=== PATIENT | female | born 1975 | race Two or more races ===

== ENCOUNTER 2024-03-28 07:00 | Day surgery (SDC) | payer MEDICAID, SELFPAY ==
[2024-03-26 13:25] LABS: HCG Qualitative,Urine Negative
[2024-03-27 13:40] VITALS: BMI 38.5
[2024-03-28] VITALS (9 sets, daily range): BP systolic 104–132; BP diastolic 66–90; PULSE 72–78; RESP 12–20; TEMP 36.2–36.7; O2SAT 93–98; BMI 38.0
[2024-03-28] MEDS: fentaNYL CIT INJ 50 mCg/ML AMP 2ML (ASD USE ONLY) IV (08:00)
[2024-03-28] MEDS: DiphenhydrAMINE INJ 50 MG/ML VIAL 25 MG IV (08:00)
[2024-03-28] MEDS: MIDAZOLAM INJ 1 MG/ML VIAL 2 ML (ASD USE ONLY) 2 MG IV (08:00)
== END 2024-03-28 09:10 | disposition home or self-care (01) ==
PROVIDERS: PCP Physician Assistant; Referring Provider Surgery; Visit Provider Surgery
PROC: 0DBE8ZX Excision of Large Intestine, Via Natural or Artificial Opening Endoscopic, Diagnostic (ICD-10-PCS; CPT 45380; principal; 2024-03-28 08:00)
DX: Z12.11 Encounter for screening for malignant neoplasm of colon (principal); D12.5 Benign neoplasm of sigmoid colon; K57.30 Diverticulosis of large intestine without perforation or abscess without bleeding
CPT/HCPCS: 45380; 81025; A4649; J1200; J2250; J3010